=== PATIENT | male | born 1985 | race Caucasian/White ===

== ENCOUNTER 2017-02-07 04:01 | Emergency (ER) | payer OTHER ==
[~2017-02-07] VITALS: Ht 175.3 cm; Wt 93.3 kg
[2017-02-07 04:42] LABS: CHLORIDE 107 mEq/L (99-109); POTASSIUM 3.3 mEq/L (3.7-5.4); SODIUM 141 mEq/L (136-147)
[2017-02-07 04:43] LABS: GLUCOSE 109 mg/dL (70-99)
[2017-02-07 04:45] LABS: ANION GAP 10 MEQ/L (2-14)
[2017-02-07 04:48] LABS: UREA NITROGEN (BUN) 14 mg/dL (9-23)
[2017-02-07 04:52] LABS: GFR ESTIMATE (CALCULATED) > 59 mL/min/
[2017-02-07] MEDS ORDERED: LISINOPRIL10 MG PO (05:48)
[2017-02-07] MEDS ORDERED: FIORICET 50-301 EACH PO (05:48)
[2017-02-07 06:07] VITALS: BP 158/113
== END 2017-02-07 06:08 | disposition home or self-care (01) ==
LOC: EME 04:01 → EDBD 04:01 → EME 06:08
PROVIDERS: Physician Assistant
DX: R51 Headache (principal); I10 Essential (primary) hypertension; F17.200 Nicotine dependence, unspecified, uncomplicated
CPT/HCPCS: 70450; 80048; 99281; 99285; J0780; J1100; J1885; J7030